=== PATIENT | female | born 1985 | race African-American/Black ===

== ENCOUNTER 2021-06-13 12:10 | Inpatient (IN) | payer OTHER ==
[2021-06-13 13:28] LABS: BASO % 0.7 % (0-2.0); EOS % 0.6 % (0-4.5); HEMOGLOBIN 9.1 GM/dL (10.7-15.3); LYMPH % 20.5 % (8-40); MCH 22.2 pg (25.7-33.7); MCHC 31.4 g/dl (32.0-36.0); MEAN CELL VOLUME 70.6 fl (80-96); MEAN PLT VOLUME 8.4 fl (7.5-11.1); MONO % 9.2 % (3.8-10.2); PLATELET COUNT 333 10^3/uL (134-434); RBC 4.11 M/mm3 (3.60-5.2); RDW 18.6 % (11.6-15.6); WHITE BLOOD COUNT 10.1 K/mm3 (4.0-10.0)
[2021-06-13 13:35] LABS: INR 0.86 (0.83-1.09)
[2021-06-13 13:38] LABS: ACTIVATED PTT 24.1 SECONDS (25.2-36.5)
[2021-06-13 13:56] VITALS: BMI 36.8
[2021-06-13 13:58] LABS: BLOOD UREA NITROGEN 5.1 mg/dL (7-18); CALCIUM 8.7 mg/dL (8.5-10.1)
[2021-06-13 14:01] LABS: URIC ACID 3.5 mg/dL (2.6-7.2)
[2021-06-13 14:02] LABS: CREATININE 0.6 mg/dL (0.55-1.3)
[2021-06-13 14:08] LABS: EPI CELLS 22 /uL (0-25.1); HYALINE CASTS 1 /uL (0-3.1); PH,URINE 6.5 (5.0-8.0); URINE APPEARANCE CLOUDY; URINE BACTERIA 501 /uL (0-1359); URINE BILIRUBIN NEGATIVE (NEGATIVE); URINE COLOR YELLOW; URINE GLUCOSE (UA) NEGATIVE (NEGATIVE); URINE KETONE NEGATIVE (NEGATIVE); URINE LEUK ESTERASE NEGATIVE (NEGATIVE); URINE NITRITE NEGATIVE (NEGATIVE); URINE PROTEIN 2+ (NEGATIVE); URINE RBC 7 /uL (0-23.9); URINE WBC 15 /uL (0-25.8)
[2021-06-13] MEDS ORDERED: CITRIC ACID/SODIUM CITRATE 30 ML UNIT-DOSE CUP PO ONE (14:56)
[2021-06-13] MEDS ORDERED: ELECTROLYTE-148 SOLN 500 ML IV ONE (14:56)
[2021-06-13] MEDS ORDERED: ELECTROLYTE-148 SOLN 1,000 ML IV SCH (15:00)
[2021-06-13] MEDS ORDERED: OXYTOCIN 20 UNITS in 0.9% NS 20 UNIT/1,000 ML INFUS.BAG IV ONE ×2 (15:47→17:09)
[2021-06-13] MEDS ORDERED: IBUPROFEN 800 MG/8 ML IJ IVPB PRN (17:13)
[2021-06-13] MEDS ORDERED: METHYLERGONOVINE MALEATE 0.2 MG/1 ML AMP IM PRN (17:13)
[2021-06-13] MEDS ORDERED: SENNOSIDES/DOCUSATE COMBO (SENNA PLUS) TABLET (UD) PO PRN (17:13)
[2021-06-13] MEDS ORDERED: IBUPROFEN 600 MG TABLET (FP) PO PRN (17:13)
[2021-06-13] MEDS: OXYTOCIN 20 UNITS in 0.9% NS 20 UNIT/1,000 ML INFUS.BAG IV SCH (17:15)
[2021-06-13] MEDS: LABETALOL HCL 200 MG TABLET (FP) PO SCH (21:45)
[2021-06-13] MEDS: FERROUS SO4 325 MG TABLET (FP) PO SCH (21:45)
[2021-06-14] MEDS ORDERED: oxyCODONE HCL 5 MG TABLET PO PRN ×2 (05:14)
[2021-06-14 07:13] LABS: BASO % 0.4 % (0-2.0); EOS % 0.6 % (0-4.5); HEMOGLOBIN 8.3 GM/dL (10.7-15.3); LYMPH % 12.9 % (8-40); MCH 21.6 pg (25.7-33.7); MCHC 30.7 g/dl (32.0-36.0); MEAN CELL VOLUME 70.3 fl (80-96); MEAN PLT VOLUME 7.9 fl (7.5-11.1); MONO % 10.1 % (3.8-10.2); PLATELET COUNT 260 10^3/uL (134-434); RBC 3.84 M/mm3 (3.60-5.2); RDW 17.9 % (11.6-15.6); WHITE BLOOD COUNT 11.9 K/mm3 (4.0-10.0)
[2021-06-14] MEDS: LABETALOL HCL 200 MG TABLET (FP) PO SCH ×2 (09:11→20:59)
[2021-06-14] MEDS: FERROUS SO4 325 MG TABLET (FP) PO SCH ×2 (09:11→20:59)
[2021-06-14] MEDS: PRENATAL VITAMINS W/ FOLIC ACID TABLET (FP) PO SCH (09:11)
[2021-06-14 10:53] LABS: ANISOCYTOSIS 2+; MACROCYTOSIS 0; PLATELET ESTIMATE NORMAL
[2021-06-14] MEDS: ACETAMINOPHEN 325 MG TABLET (FP) PO PRN (13:02)
[2021-06-14] MEDS ORDERED: BISACODYL 10 MG SUPP.RECT RC PRN (17:14)
[2021-06-14] MEDS ORDERED: BISACODYL 10 MG SUPP.RECT PR PRN (17:16)
[2021-06-15] MEDS: ACETAMINOPHEN 325 MG TABLET (FP) PO PRN ×3 (02:08→21:39)
[2021-06-15] MEDS: SIMETHICONE 80 MG TAB.CHEW (FP) PO PRN ×2 (02:09→10:05)
[2021-06-15] MEDS: PRENATAL VITAMINS W/ FOLIC ACID TABLET (FP) PO SCH (10:00)
[2021-06-15] MEDS: LABETALOL HCL 200 MG TABLET (FP) PO SCH ×2 (10:00→21:39)
[2021-06-15] MEDS: FERROUS SO4 325 MG TABLET (FP) PO SCH ×2 (10:00→21:39)
[2021-06-16] MEDS: ACETAMINOPHEN 325 MG TABLET (FP) PO PRN (02:16)
[2021-06-16] MEDS: OXYTOCIN 20 UNITS in 0.9% NS 20 UNIT/1,000 ML INFUS.BAG IV SCH (07:15)
[2021-06-16] MEDS: PRENATAL VITAMINS W/ FOLIC ACID TABLET (FP) PO SCH (09:42)
[2021-06-16] MEDS: FERROUS SO4 325 MG TABLET (FP) PO SCH (09:42)
[2021-06-16] MEDS: LABETALOL HCL 200 MG TABLET (FP) PO SCH (09:43)
[2021-06-16 10:33] VITALS: BP 146/86; PULSE 86; TEMP 98.6
== END 2021-06-16 11:45 | disposition home or self-care (01) | DRG 540 ==
LOC: JLDR 12:10 → J3W 18:15
PROVIDERS: ADMIT Obstetrics & Gynecology; ATTEND Obstetrics & Gynecology
PROC: 10D00Z1 Extraction of Products of Conception, Low, Open Approach (ICD-10-PCS; principal; 2021-06-13)
PROC: 0UB70ZZ Excision of Bilateral Fallopian Tubes, Open Approach (ICD-10-PCS; 2021-06-13)
DX: O14.14 Severe pre-eclampsia complicating childbirth (principal); O11.4 Pre-existing hypertension with pre-eclampsia, complicating childbirth; Z3A.35 35 weeks gestation of pregnancy; O34.211 Maternal care for low transverse scar from previous cesarean delivery; N85.8 Other specified noninflammatory disorders of uterus; Z30.2 Encounter for sterilization; O60.14X0 Preterm labor third trimester with preterm delivery third trimester, not applicable or unspecified; Z37.0 Single live birth
CPT/HCPCS: 36415; 80048; 81003; 82570; 82977; 83010; 84156; 84450; 84460; 84550; 85025; 85045; 85610; 85730; 86780; 86850; 86900; 86901; 88302-TC; 88307-TC; C9803; U0003; U0005